=== PATIENT | female | born 1965 | race Caucasian/White ===

== ENCOUNTER 2017-09-05 16:28 | Emergency (ER) | payer OTHER ==
[~2017-09-05] VITALS: Ht 167.6 cm; Wt 54.4 kg
[2017-09-05 17:43] LABS: BASOPHILS # (AUTO) 0.1 K/uL (0.0-8.0); BASOPHILS % (AUTO) 1.2 % (0.0-2.0); EOSINOPHILS % (AUTO) 0.5 % (0.0-7.0); HEMATOCRIT 45.4 % (37-47); LYMPHOCYTES # (AUTO) 2.3 K/UL (0.8-4.8); LYMPHOCYTES % (AUTO) 35.8 % (20.5-51.5); MEAN CORPUSCULAR HEMOGLOBIN 31.5 UUG (27.0-31.0); MEAN CORPUSCULAR HGB CONC 33 g/dL (32.0-37.0); MEAN CORPUSCULAR VOLUME 95.6 FL (81.0-99.0); MONOCYTES # (AUTO) 0.7 K/UL (0.1-1.30); MONOCYTES % (AUTO) 11.4 % (0.0-11.0); NEUTROPHILS # (AUTO) 3.3 K/UL (1.8-8.9); NEUTROPHILS % (AUTO) 51.1 % (38.5-71.5); PLATELET COUNT (AUTO) 100 K/UL (150-450); RED BLOOD CELL COUNT(AUTO) 4.75 MIL/UL (4.2-5.4); WHITE BLOOD COUNT (AUTO) 6.4 K/UL (4.0-11.2)
[2017-09-05 17:46] LABS: CREATININE 0.7 mg/dL (0.6-1.3); POTASSIUM 3.9 mmol/L (3.5-5.1)
[2017-09-05] MEDS ORDERED: MEMA5TAB PO (17:51)
[2017-09-05] MEDS ORDERED: LEVE750T4 PO (17:51)
[2017-09-05] MEDS ORDERED: DIVA500T2 PO (17:51)
[2017-09-05] MEDS ORDERED: CALC-1104 PO (17:51)
[2017-09-05] MEDS ORDERED: TERB30CR22 TP (17:51)
[2017-09-05] MEDS ORDERED: CLOTRIMAZOLE 1% TP (17:51)
[2017-09-05] MEDS ORDERED: ALEN70TA3 PO (17:51)
[2017-09-05] MEDS ORDERED: GUAN1TAB PO (17:51)
[2017-09-05] MEDS ORDERED: DONE5TAB7 PO (17:51)
--- NOTE | 2017-09-05 18:19 | NUR ---
Patient discharged to home in stable conditon. Written and verbal after care instructions given. Patient verbalizes understanding of instructions.pt walks in steady gait, pt no sign of distress.
[2017-09-05 18:42] VITALS: BP 117/75
== END 2017-09-05 18:43 | disposition home or self-care (01) ==
LOC: ER 16:32
DX: R79.9 Abnormal finding of blood chemistry, unspecified (principal); G40.909 Epilepsy, unspecified, not intractable, without status epilepticus
CPT/HCPCS: 36415; 71010; 80048; 83735; 84484; 85025; 85730; 93005; 99285; A4663; 70030-TC

== ENCOUNTER 2018-10-15 09:50 | Emergency (ER) | payer OTHER ==
[~2018-10-15] VITALS: Ht 167.6 cm; Wt 54.4 kg
[~2018-10-15 09:50] MED LIST: ALEN70TA3 PO; CALC-1104 PO; CLOTRIMAZOLE 1% TP; DIVA500T2 PO; DONE5TAB7 PO; GUAN1TAB PO; LEVE750T4 PO; MEMA5TAB PO; TERB30CR22 TP
--- NOTE | 2018-10-15 12:00 | NUR ---
pt. seen by
--- NOTE | 2018-10-15 12:40 | NUR ---
dcd instructions and list of eye Drs. given to pt.. Pt. left room [id number]. vitals stable.
== END 2018-10-15 12:41 | disposition home or self-care (01) ==
LOC: ER 09:50
DX: H20.00 Unspecified acute and subacute iridocyclitis (principal); Z79.899 Other long term (current) drug therapy
CPT/HCPCS: A4663

== ENCOUNTER 2019-12-08 07:28 | Emergency (ER) | payer OTHER ==
[~2019-12-08] VITALS: Ht 167.6 cm; Wt 54.4 kg
[2019-12-08] MEDS ORDERED: MEMA10TA PO (07:52)
[2019-12-08] MEDS ORDERED: GABA600T12 PO (07:52)
--- NOTE | 2019-12-08 07:56 | NUR ---
PT IS IN ROOM #1B. DR BAEZA EVALUATED THE PT.
--- NOTE | 2019-12-08 08:31 | NUR ---
DR BAEZA EVALUATED THE PT.
[2019-12-08 08:34] LABS: BASOPHILS % (AUTO) 0.6 % (0.0-2.0); EOSINOPHILS # (AUTO) 0.1 K/uL (0.0-0.7); EOSINOPHILS % (AUTO) 1.1 % (0.0-7.0); HEMATOCRIT 47.7 % (31.2-41.9); HEMOGLOBIN 16.3 g/dL (10.9-14.3); LYMPHOCYTES # (AUTO) 2.1 K/uL (20.0-40.0); LYMPHOCYTES % (AUTO) 43.4 % (20.5-51.5); MEAN CORPUSCULAR HGB CONC 34 g/dL (32.3-35.6); MEAN CORPUSCULAR VOLUME 93.4 fL (75.5-95.3); MONOCYTES # (AUTO) 0.6 K/uL (2.0-10.0); MONOCYTES % (AUTO) 11.7 % (0.0-11.0); NEUTROPHILS # (AUTO) 2.1 K/uL (1.8-8.9); NEUTROPHILS % (AUTO) 43.2 % (38.5-71.5); PLATELET COUNT (AUTO) 146 K/uL (179-408); WHITE BLOOD COUNT (AUTO) 4.8 K/uL (3.8-11.8)
[2019-12-08 08:41] LABS: CREATININE 0.8 mg/dL (0.6-1.3); POTASSIUM 4.2 mmol/L (3.5-5.1)
[2019-12-08 08:47] LABS: BILIRUBIN,DIRECT 0.1 mg/dL (0.0-0.2); BILIRUBIN,TOTAL 0.6 mg/dL (0.2-1.0); TOTAL PROTEIN, SERUM 7.4 g/dL (6.4-8.2)
[2019-12-08] MEDS ORDERED: IV NORMAL SALINE 1000 ML BAG IV ONE (09:15)
--- NOTE | 2019-12-08 12:13 | NUR ---
PT WAS D/C'd TO HOME AFTER RESEARCH AND EVALUATION ANALYST PHILL ELIZABETHAYION AND DR BAEZA EVALUATION. D/C INSTRUCTIONS GIVEN TO THE PT BY DR BAEZA.
[2019-12-08 12:17] VITALS: BP 136/73
== END 2019-12-08 12:19 | disposition home or self-care (01) ==
LOC: ER 07:28
DX: E86.0 Dehydration (principal); R20.2 Paresthesia of skin; Z79.899 Other long term (current) drug therapy
CPT/HCPCS: 36415; 83735; 85025; 93005; A4663; J7030